=== PATIENT | female | born 1960 | race Caucasian/White ===

== ENCOUNTER 2019-07-30 10:17 | Day surgery (SDC) | payer MEDICAID ==
[~2019-07-30] VITALS: Ht 149.9 cm; Wt 61.2 kg
[2019-07-30] MEDS ORDERED: GLIP10TA10 MT (11:00)
[2019-07-30] MEDS ORDERED: SIMV-46 MT (11:00)
[2019-07-30] MEDS ORDERED: METF-416 MT (11:00)
[2019-07-30] MEDS ORDERED: LISI-649 MT (11:00)
[2019-07-30] MEDS ORDERED: ASPI-1497 MT (11:00)
[2019-07-30] MEDS ORDERED: MIDAZOLAM HCL 2 MG/2 ML VIAL ONE (11:24)
[2019-07-30] MEDS ORDERED: FENTANYL CITRATE/PF 50MCG/ML 2ML VIAL ONE (11:24)
[2019-07-30] MEDS ORDERED: IODIXANOL 320MG/ML 100 ML BOTTLE IV ONE ×2 (11:24→12:21)
[2019-07-30] MEDS ORDERED: LIDOCAINE HCL 1% 20ML VIAL (Pyxis) INJ ONE (11:25)
[2019-07-30 11:36] LABS: HEMATOCRIT 39.4 % (36.0-48.0); HEMOGLOBIN 13.4 g/dL (12.0-16.0); MEAN CORPUSCULAR HEMOGLOBIN 29.8 pg (28.0-32.0); MEAN CORPUSCULAR VOLUME 87.3 fL (81.0-99.0); PLATELET 243 x1000/uL (130-400); RED BLOOD CELL COUNT 4.51 mill/uL (4.2-5.4); RED CELL DISTRIBUTION WIDTH 12.4 % (11.6-14.6)
[2019-07-30 11:41] LABS: CHLORIDE 108 mEq/L (98-107)
[2019-07-30 11:53] LABS: PROTHROMBIN TIME 10.3 sec (9.6-11.0)
[2019-07-30] MEDS ORDERED: SODIUM CHLORIDE 0.45% 1,000 ML IV SCH (13:00)
[2019-07-30] MEDS ORDERED: ONDANSETRON HCL 4MG/2ML INJ IV PRN (13:00)
[2019-07-30] MEDS ORDERED: MORPHINE SULFATE 2 MG/ML CPJ (NOT FOR IM USE) IV PRN (13:00)
[2019-07-30] MEDS ORDERED: ACETAMINOPHEN 325MG TABLET PO PRN (13:00)
== END 2019-07-30 18:25 | disposition home or self-care (01) ==
LOC: CCL 10:17
PROVIDERS: ATTEND Internal Medicine Cardiovascular Disease
DX: I35.0 Nonrheumatic aortic (valve) stenosis (principal); I10 Essential (primary) hypertension; E78.5 Hyperlipidemia, unspecified; E11.9 Type 2 diabetes mellitus without complications; J45.909 Unspecified asthma, uncomplicated; Z79.82 Long term (current) use of aspirin; Z79.899 Other long term (current) drug therapy; Z98.891 History of uterine scar from previous surgery; Z79.84 Long term (current) use of oral hypoglycemic drugs
CPT/HCPCS: 36415; 80048; 85027; 85610; 93005; 93460; 99152; 99153; C1760; C1769; C1887; C1893; J1644; J2250; J3010; J3490; Q9967; G0500

== ENCOUNTER → 2019-12-25 | Outpatient (CLI) | payer MEDICAID ==
[~2019-12-25] MED LIST: ALBU90AE IH; ALBUMIN HUMAN 25GM/100ML (25%) IV ONE; AMINOCAPROIC ACID 250 MG/ML 20ML VIAL ONE; ASPI-1497 MT; BACITRACIN 50,000 UNITS/VIAL ONE; CALCIUM CHLORIDE 1GM/10ML SYR IV ONE; FLOV44 INH; FUROSEMIDE 20MG/2ML VIAL ONE; GLIP10TA10 MT; HEPARIN 1000 UNITS/ML 10ML ONE; IBUP-2437 PO; LISI-649 MT; MAGNESIUM SULFATE 5GM/10ML VIAL IV ONE; METF-416 MT; NORMAL SALINE 0.9% 10 ML SYR ONE; PHENYLEPHRINE HCL 10 MG/ML 1ML (IV VIAL) IV ONE; POTASSIUM CHLORIDE 40MEQ/20ML INJ IV ONE; SIMV-46 MT; SODIUM BICARBONATE 8.4% 1 MEQ/ML 50ML SYR IV ONE; THROMBIN (BOVINE) 5000 UNITS/VIAL TOP ONE
== END | disposition home or self-care (01) ==
LOC: LAB 09:09
PROVIDERS: ATTEND Thoracic Surgery (Cardiothoracic Vascular Surgery)
DX: Z01.818 Encounter for other preprocedural examination (principal); Z11.59 Encounter for screening for other viral diseases
CPT/HCPCS: 36415; 86850; 86900; 86901; C9803; U0003

== ENCOUNTER 2019-12-27 06:27 | Inpatient (IN) | payer MEDICAID ==
[~2019-12-27] VITALS: Ht 149.9 cm; Wt 61.3 kg
[2019-12-27] VITALS (63 sets, daily range): BP systolic 92–272; BP diastolic 12–77
[2019-12-27 06:17] LABS: BASOPHILS % 0.6 % (0.0-2.0); EOSINOPHILS % 2.1 % (0.0-5.0); HEMATOCRIT. 37.5 % (36.0-48.0); HEMOGLOBIN. 12.9 g/dL (12.0-16.0); LYMPHOCYTES % 44.1 % (20.0-50.0); MEAN PLATELET VOLUME 8.3 fl (7.4-10.4); NEUTROPHILS % 46.2 % (40.0-76.0); PLATELET 275 x1000/uL (130-400); RED BLOOD CELL COUNT 4.31 mill/uL (4.2-5.4); RED CELL DISTRIBUTION WIDTH 13.3 % (11.6-14.6)
[2019-12-27 06:24] LABS: CHLORIDE 106 mEq/L (98-107)
[~2019-12-27 06:27] MED LIST changes: -ALBU90AE IH; -ALBUMIN HUMAN 25GM/100ML (25%) IV ONE; +AMINOCAPROIC ACID 10,000 MG in SODIUM CHLORIDE 0.9% 460 ML IV PRN; -AMINOCAPROIC ACID 250 MG/ML 20ML VIAL ONE; -BACITRACIN 50,000 UNITS/VIAL ONE; -CALCIUM CHLORIDE 1GM/10ML SYR IV ONE; +CEFAZOLIN 2,000 MG in DEXT 5% WATER 100 ML IV PRN; +DEL NIDO ELECTROLYTE-S(PH 7.4) 1,000 ML IV PRN; +DOBUTAMINE 250MG PREMIX 250 ML IV PRN; +EPINEPHRINE 4 MG in DEXT 5% WATER 246 ML IV PRN; -FLOV44 INH; -FUROSEMIDE 20MG/2ML VIAL ONE; -HEPARIN 1000 UNITS/ML 10ML ONE; -IBUP-2437 PO; +INSULIN REGULAR (DRIP) 100 UNITS in SODIUM CHLORIDE 0.9% 99 ML IV PRN; -MAGNESIUM SULFATE 5GM/10ML VIAL IV ONE; +NICARDIPINE 40MG/200ML PREMIX 200 ML IV PRN; +NOREPINEPHRINE 4 MG in DEXT 5% WATER 246 ML IV PRN; -NORMAL SALINE 0.9% 10 ML SYR ONE; +PAPAVERINE HCL 180MG in SODIUM CHLORIDE 0.9% 24ML IV SCH; +PHENYLEPHRINE 10 MG in DEXT 5% WATER 249 ML IV PRN; -PHENYLEPHRINE HCL 10 MG/ML 1ML (IV VIAL) IV ONE; -POTASSIUM CHLORIDE 40MEQ/20ML INJ IV ONE; -SODIUM BICARBONATE 8.4% 1 MEQ/ML 50ML SYR IV ONE; -THROMBIN (BOVINE) 5000 UNITS/VIAL TOP ONE
[2019-12-27] MEDS ORDERED: MIDAZOLAM HCL 2 MG/2 ML VIAL ONE (06:59)
[2019-12-27] MEDS ORDERED: FENTANYL CITRATE/PF 50MCG/ML 5ML VIAL ONE (06:59)
[2019-12-27] MEDS ORDERED: SODIUM CHLORIDE 0.9% 1,000 ML IV SCH (07:00)
[2019-12-27] MEDS ORDERED: PROPOFOL 200MG/20ML VIAL IV ONE (07:01)
[2019-12-27] MEDS ORDERED: LABETALOL HCL 5MG/ML VIAL 20ML IV ONE (07:05)
[2019-12-27] MEDS ORDERED: ROCURONIUM BROMIDE 10MG/ML VIAL 5ML IV ONE (07:05)
[2019-12-27] MEDS ORDERED: HEPARIN 10,000 UNITS/ML VIAL ONE (07:08)
[2019-12-27] MEDS ORDERED: ALBU90AE IH (07:30)
[2019-12-27] MEDS ORDERED: IBUP-2437 PO (07:30)
[2019-12-27] MEDS ORDERED: FLOV44 INH (07:30)
[2019-12-27] MEDS ORDERED: ETOMIDATE 2MG/ML 10ML VIAL IV ONE (07:41)
[2019-12-27] MEDS ORDERED: METOPROLOL TARTRATE 5MG/5ML VIAL IV ONE ×2 (08:16→08:20)
[2019-12-27] MEDS ORDERED: AMINOCAPROIC ACID 250 MG/ML 20ML VIAL ONE (10:14)
[2019-12-27] MEDS ORDERED: ONDANSETRON HCL 4MG/2ML INJ ONE (10:14)
[2019-12-27] MEDS ORDERED: METOCLOPRAMIDE HCL 10MG/2ML VIAL ONE (10:14)
[2019-12-27] MEDS ORDERED: THROMBIN (BOVINE) 5000 UNITS/VIAL TOP ONE (10:28)
[2019-12-27] MEDS ORDERED: DOPAMINE 400MG/250ML PREMIX 250 ML IV ONE (10:42)
[2019-12-27] MEDS ORDERED: PROTAMINE SULFATE 10MG/ML VIAL 25ML IV ONE (10:51)
[2019-12-27] MEDS ORDERED: DEXMEDETOMIDINE 400 MCG/100 ML 100 ML IV ONE (11:30)
[2019-12-27] MEDS ORDERED: ALBUMIN HUMAN 12.5G/250ML (5%) IV ONE ×2 (11:40→12:19)
[2019-12-27] MEDS ORDERED: NEOSTIGMINE METHYLSULFATE 1MG/ML 10 ML VIAL ONE (11:46)
[2019-12-27 11:50] LABS: BASOPHILS % 0.3 % (0.0-2.0); EOSINOPHILS % 0.4 % (0.0-5.0); HEMATOCRIT. 31.9 % (36.0-48.0); LYMPHOCYTES % 17.3 % (20.0-50.0); MEAN CORPUSCULAR HEMOGLOBIN 29.7 pg (28.0-32.0); MEAN CORPUSCULAR VOLUME 86.5 fL (81.0-99.0); MEAN PLATELET VOLUME 8.6 fl (7.4-10.4); MONOCYTES % 1.3 % (2.0-8.0); NEUTROPHILS % 80.7 % (40.0-76.0); PLATELET 159 x1000/uL (130-400); RED BLOOD CELL COUNT 3.69 mill/uL (4.2-5.4)
[2019-12-27] MEDS ORDERED: CEFAZOLIN SODIUM 1000MG/VIAL ONE (11:56)
[2019-12-27 11:57] LABS: CHLORIDE 105 mEq/L (98-107)
[2019-12-27 12:03] LABS: PHOSPHORUS 1.9 mg/dL (2.5-4.9)
[2019-12-27 12:04] LABS: INR 1.1; PARTIAL THROMBOPLASTIN TIME 28.3 sec (23.4-31.0); PROTHROMBIN TIME 11.9 sec (9.6-11.0)
[2019-12-27] MEDS ORDERED: SODIUM CHLORIDE 0.9% 500 ML IV PRN (12:10)
[2019-12-27] MEDS ORDERED: DOPAMINE 400MG/250ML PREMIX 250 ML IV PRN (12:10)
[2019-12-27] MEDS ORDERED: ALBUMIN HUMAN 12.5G/250ML (5%) IV PRN (12:15)
[2019-12-27] MEDS: MAGNESIUM HYDROXIDE 400MG/5ML 30ML UDC PO SCH ×3 (12:15→20:06)
[2019-12-27] MEDS ORDERED: MAGNESIUM 1 G PREMIX 100 ML IV PRN (12:15)
[2019-12-27] MEDS ORDERED: ONDANSETRON HCL 4MG/2ML INJ IV PRN (12:15)
[2019-12-27] MEDS ORDERED: MAGNESIUM SULFATE 3 GM in DEXT 5% WATER 100 ML IV PRN (12:15)
[2019-12-27] MEDS ORDERED: ACETAMINOPHEN 325MG TABLET PO PRN (12:15)
[2019-12-27 12:49] LABS: BG BASE EXCESS -2.6 mmol/L (-2.0-2.0); BG CARBOXYHEMOGLOBIN 0.3 % (0.5-1.5); BG FRACTION INSPIRED OXYGEN 40; BG HCO3 ACT 21.8 mmol/L (22.0-26.0); BG METHEMOGLOBIN 0.7 % (0.0-1.5); BG OXYGEN SATURATION 93.9 % (92.0-98.5); BG PCO2 36.3 mmHg (35.0-45.0); BG PH 7.397 (7.350-7.450); BG PO2 74.9 mmHg (75.0-100.0); BG PRESSURE SUPPORT 10; BG SAMPLE SITE A-LINE; BG TOTAL HEMOGLOBIN 10.8 g/dL (12.0-18.0); BG VENT MODE VENT - CPAP
[2019-12-27] MEDS ORDERED: DEXTROSE 50% WATER 50ML SYRINGE IV PRN ×2 (13:00)
[2019-12-27] MEDS ORDERED: INSULIN REGULAR (DRIP) 100 UNITS in SODIUM CHLORIDE 0.9% 100 ML IV SCH (13:00)
[2019-12-27] MEDS ORDERED: KCL 10MEQ/50ML PREMIX 200 ML IV PRN (13:00)
[2019-12-27] MEDS: BLOOD SUGAR DIAGNOSTIC STRIP TEST SCH ×11 (13:10→23:19)
[2019-12-27] MEDS: DEXT 5%/0.45% NACL 1000ML 1,000 ML IV SCH (13:14)
[2019-12-27 14:37] LABS: BG BASE EXCESS -0.8 mmol/L (-2.0-2.0); BG CARBOXYHEMOGLOBIN 0.3 % (0.5-1.5); BG DEOXYHEMOGLOBIN 3.2 % (0.0-5.0); BG FRACTION INSPIRED OXYGEN 40; BG HCO3 ACT 22.9 mmol/L (22.0-26.0); BG METHEMOGLOBIN 0.4 % (0.0-1.5); BG OXYGEN SATURATION 96.8 % (92.0-98.5); BG OXYHEMOGLOBIN 96.1 % (94.0-97.0); BG PCO2 34.5 mmHg (35.0-45.0); BG PO2 95.2 mmHg (75.0-100.0); BG PRESSURE SUPPORT 10; BG SAMPLE SITE A-LINE; BG TOTAL HEMOGLOBIN 11.4 g/dL (12.0-18.0); BG VENT MODE VENT - CPAP
[2019-12-27] MEDS ORDERED: PNEUMOCOCCAL 23-VAL P-SAC VAC 0.5 ML IM ONE (16:00)
[2019-12-27] MEDS: ACETAMINOPHEN WITH CODEINE 300/30MG TABLET PO PRN (16:33)
[2019-12-27] MEDS: DOCUSATE SODIUM 100MG CAPSULE PO SCH (16:39)
[2019-12-27] MEDS: IPRATROPIUM/ALBUTEROL 0.5-3(2.5)MG/3ML NEB HHN SCH ×2 (16:47→20:24)
[2019-12-27 18:32] LABS: BASOPHILS % 0.2 % (0.0-2.0); EOSINOPHILS % 0.1 % (0.0-5.0); HEMATOCRIT. 30.1 % (36.0-48.0); HEMOGLOBIN. 10.5 g/dL (12.0-16.0); LYMPHOCYTES % 7.6 % (20.0-50.0); MEAN CORPUSCULAR HEMOGLOBIN 30.5 pg (28.0-32.0); MEAN PLATELET VOLUME 8.5 fl (7.4-10.4); MONOCYTES % 6.5 % (2.0-8.0); NEUTROPHILS % 85.6 % (40.0-76.0); PLATELET 161 x1000/uL (130-400); RED BLOOD CELL COUNT 3.46 mill/uL (4.2-5.4); RED CELL DISTRIBUTION WIDTH 13.1 % (11.6-14.6)
[2019-12-27 18:37] LABS: CHLORIDE 115 mEq/L (98-107)
[2019-12-27] MEDS: KCL 10MEQ/50ML PREMIX 100 ML IV PRN (18:52)
[2019-12-27] MEDS: MAGNESIUM 2 G PREMIX 50 ML IV PRN (18:53)
[2019-12-27] MEDS: HYDROCODONE/ACETAMINOPHEN 5/325MG TABLET PO PRN (19:25)
[2019-12-27] MEDS: CEFAZOLIN 1000MG PREMIX 50 ML IV SCH (20:07)
[2019-12-27] MEDS: INSULIN REGULAR (DRIP) 100 UNITS in SODIUM CHLORIDE 0.9% 99 ML IV SCH (23:39)
[2019-12-28] VITALS (104 sets, daily range): BP systolic 84–187; BP diastolic 21–78
[2019-12-28] MEDS ORDERED: EPOETIN ALFA 4000UNITS/ML VIAL SUBCUT NR
[2019-12-28] MEDS: BLOOD SUGAR DIAGNOSTIC STRIP TEST SCH ×23 (00:01→23:38)
[2019-12-28] MEDS: MAGNESIUM HYDROXIDE 400MG/5ML 30ML UDC PO SCH ×4 (00:03→11:56)
[2019-12-28] MEDS: IPRATROPIUM/ALBUTEROL 0.5-3(2.5)MG/3ML NEB HHN SCH ×5 (00:16→16:54)
[2019-12-28 00:27] LABS: BASOPHILS % 0.2 % (0.0-2.0); HEMATOCRIT. 31.2 % (36.0-48.0); HEMOGLOBIN. 10.7 g/dL (12.0-16.0); MEAN CORPUSCULAR VOLUME 87.2 fL (81.0-99.0); MEAN PLATELET VOLUME 9.1 fl (7.4-10.4); MONOCYTES % 6.6 % (2.0-8.0); NEUTROPHILS % 84.2 % (40.0-76.0); PLATELET 169 x1000/uL (130-400); RED BLOOD CELL COUNT 3.58 mill/uL (4.2-5.4); RED CELL DISTRIBUTION WIDTH 13.4 % (11.6-14.6)
[2019-12-28 00:32] LABS: CHLORIDE 112 mEq/L (98-107)
[2019-12-28] MEDS: KCL 10MEQ/50ML PREMIX 150 ML IV PRN ×2 (00:42→06:23)
[2019-12-28] MEDS: HYDROCODONE/ACETAMINOPHEN 5/325MG TABLET PO PRN ×2 (00:48→21:08)
[2019-12-28] MEDS: MORPHINE SULFATE 2 MG/ML CPJ (NOT FOR IM USE) IV PRN ×2 (01:35→04:43)
[2019-12-28] MEDS: CEFAZOLIN 1000MG PREMIX 50 ML IV SCH ×2 (04:00→11:00)
[2019-12-28 05:46] LABS: BASOPHILS % 0.2 % (0.0-2.0); HEMATOCRIT. 31.1 % (36.0-48.0); HEMOGLOBIN. 10.5 g/dL (12.0-16.0); LYMPHOCYTES % 9.3 % (20.0-50.0); MEAN CORPUSCULAR HEMOGLOBIN 29.7 pg (28.0-32.0); MEAN CORPUSCULAR VOLUME 87.8 fL (81.0-99.0); MEAN PLATELET VOLUME 8.8 fl (7.4-10.4); MONOCYTES % 7.2 % (2.0-8.0); NEUTROPHILS % 83.3 % (40.0-76.0); PLATELET 162 x1000/uL (130-400); RED BLOOD CELL COUNT 3.55 mill/uL (4.2-5.4); RED CELL DISTRIBUTION WIDTH 13.6 % (11.6-14.6)
[2019-12-28 05:48] LABS: CHLORIDE 109 mEq/L (98-107)
[2019-12-28 05:59] LABS: PHOSPHORUS 2.8 mg/dL (2.5-4.9)
[2019-12-28] MEDS: MAGNESIUM 2 G PREMIX 50 ML IV PRN (06:33)
[2019-12-28] MEDS: KETOROLAC 15MG/ML VIAL IV SCH ×2 (07:34→13:44)
[2019-12-28] MEDS ORDERED: FUROSEMIDE 40MG/4ML VIAL IVP SCH (08:00)
[2019-12-28] MEDS: FAMOTIDINE 20MG/2ML VIAL IV SCH (08:03)
[2019-12-28] MEDS: DOCUSATE SODIUM 100MG CAPSULE PO SCH ×2 (08:03→16:30)
[2019-12-28] MEDS: DEXT 5%/0.45% NACL 1000ML 1,000 ML IV SCH (08:03)
[2019-12-28 12:27] LABS: CHLORIDE 107 mEq/L (98-107)
[2019-12-28] MEDS: KCL 10MEQ/50ML PREMIX 100 ML IV PRN ×2 (12:32→20:55)
[2019-12-28] MEDS ORDERED: FUROSEMIDE 20MG/2ML VIAL IVP NR (14:00)
[2019-12-28] MEDS: INSULIN REGULAR (DRIP) 100 UNITS in SODIUM CHLORIDE 0.9% 99 ML IV SCH (16:08)
[2019-12-28] MEDS: ASPIRIN 81MG TABLET PO SCH (16:30)
[2019-12-28] MEDS: LISINOPRIL 10MG TABLET PO SCH (16:31)
[2019-12-28 20:17] LABS: CHLORIDE 106 mEq/L (98-107)
[2019-12-28] MEDS: ATORVASTATIN CALCIUM 10MG TABLET PO SCH (20:39)
[2019-12-29] VITALS (48 sets, daily range): BP systolic 92–131; BP diastolic 32–104
[2019-12-29] MEDS: BLOOD SUGAR DIAGNOSTIC STRIP TEST SCH ×24 (00:38→23:00)
[2019-12-29] MEDS: HYDROCODONE/ACETAMINOPHEN 5/325MG TABLET PO PRN ×3 (04:08→22:23)
[2019-12-29] MEDS: DEXT 5%/0.45% NACL 1000ML 1,000 ML IV SCH (04:33)
[2019-12-29] MEDS: INSULIN REGULAR (DRIP) 100 UNITS in SODIUM CHLORIDE 0.9% 99 ML IV SCH ×2 (05:02→16:00)
[2019-12-29 05:26] LABS: BASOPHILS % 0.3 % (0.0-2.0); EOSINOPHILS % 0.5 % (0.0-5.0); HEMATOCRIT. 28.1 % (36.0-48.0); HEMOGLOBIN. 9.4 g/dL (12.0-16.0); LYMPHOCYTES % 14.5 % (20.0-50.0); MEAN CORPUSCULAR HEMOGLOBIN 29.6 pg (28.0-32.0); MEAN CORPUSCULAR VOLUME 88.2 fL (81.0-99.0); MEAN PLATELET VOLUME 9.1 fl (7.4-10.4); MONOCYTES % 6.7 % (2.0-8.0); PLATELET 122 x1000/uL (130-400); RED BLOOD CELL COUNT 3.19 mill/uL (4.2-5.4); RED CELL DISTRIBUTION WIDTH 13.9 % (11.6-14.6)
[2019-12-29 05:34] LABS: CHLORIDE 108 mEq/L (98-107)
[2019-12-29 05:46] LABS: PHOSPHORUS 2.2 mg/dL (2.5-4.9)
[2019-12-29] MEDS: KCL 10MEQ/50ML PREMIX 100 ML IV PRN (05:47)
[2019-12-29] MEDS: MORPHINE SULFATE 2 MG/ML CPJ (NOT FOR IM USE) IV PRN (06:16)
[2019-12-29] MEDS ORDERED: KETOROLAC 15MG/ML VIAL IV SCH (08:00)
[2019-12-29] MEDS: FAMOTIDINE 20MG/2ML VIAL IV SCH (08:11)
[2019-12-29] MEDS: ASPIRIN 81MG TABLET PO SCH (08:11)
[2019-12-29] MEDS: MAGNESIUM 2 G PREMIX 50 ML IV PRN (08:11)
[2019-12-29] MEDS: LISINOPRIL 10MG TABLET PO SCH (08:12)
[2019-12-29] MEDS: DOCUSATE SODIUM 100MG CAPSULE PO SCH ×2 (08:12→16:00)
[2019-12-29] MEDS: IPRATROPIUM/ALBUTEROL 0.5-3(2.5)MG/3ML NEB HHN SCH ×3 (08:22→16:40)
[2019-12-29] MEDS: ATORVASTATIN CALCIUM 10MG TABLET PO SCH (21:56)
[2019-12-30] VITALS (35 sets, daily range): BP systolic 94–131; BP diastolic 40–93
[2019-12-30] MEDS: DEXT 5%/0.45% NACL 1000ML 1,000 ML IV SCH (00:30)
[2019-12-30] MEDS: BLOOD SUGAR DIAGNOSTIC STRIP TEST SCH ×16 (01:31→21:41)
[2019-12-30] MEDS: HYDROCODONE/ACETAMINOPHEN 5/325MG TABLET PO PRN ×2 (06:43→21:51)
[2019-12-30 06:50] LABS: BASOPHILS % 0.3 % (0.0-2.0); EOSINOPHILS % 1.3 % (0.0-5.0); HEMATOCRIT. 27.1 % (36.0-48.0); HEMOGLOBIN. 9.3 g/dL (12.0-16.0); LYMPHOCYTES % 21.7 % (20.0-50.0); MEAN CORPUSCULAR HEMOGLOBIN 30.6 pg (28.0-32.0); MEAN CORPUSCULAR VOLUME 88.8 fL (81.0-99.0); MEAN PLATELET VOLUME 9.2 fl (7.4-10.4); MONOCYTES % 6.9 % (2.0-8.0); NEUTROPHILS % 69.8 % (40.0-76.0); PLATELET 127 x1000/uL (130-400); RED BLOOD CELL COUNT 3.05 mill/uL (4.2-5.4); RED CELL DISTRIBUTION WIDTH 13.8 % (11.6-14.6)
[2019-12-30 07:20] LABS: CHLORIDE 113 mEq/L (98-107)
[2019-12-30 07:26] LABS: PHOSPHORUS 3.3 mg/dL (2.5-4.9)
[2019-12-30] MEDS: ASPIRIN 81MG TABLET PO SCH (08:36)
[2019-12-30] MEDS: LISINOPRIL 10MG TABLET PO SCH (08:36)
[2019-12-30] MEDS: FAMOTIDINE 20MG/2ML VIAL IV SCH (08:38)
[2019-12-30] MEDS: INSULIN REGULAR (DRIP) 100 UNITS in SODIUM CHLORIDE 0.9% 99 ML IV SCH (08:39)
[2019-12-30] MEDS: DOCUSATE SODIUM 100MG CAPSULE PO SCH (08:41)
[2019-12-30] MEDS: IPRATROPIUM/ALBUTEROL 0.5-3(2.5)MG/3ML NEB HHN SCH ×5 (09:11→20:43)
[2019-12-30] MEDS: KCL 10MEQ/50ML PREMIX 100 ML IV PRN (09:26)
[2019-12-30] MEDS: ACETAMINOPHEN WITH CODEINE 300/30MG TABLET PO PRN (13:28)
[2019-12-30] MEDS ORDERED: DEXTROSE 50% WATER 50ML SYRINGE IV PRN ×2 (15:15)
[2019-12-30] MEDS ORDERED: OXYCODONE HCL/ACETAMINOPHEN 5/325MG TABLET PO PRN (15:30)
[2019-12-30] MEDS ORDERED: BLOOD SUGAR DIAGNOSTIC STRIP TEST SCH (17:50)
[2019-12-30] MEDS: INSULIN LISPRO 100 UNITS/ML SUBCUT SCH ×2 (18:24→21:40)
[2019-12-30] MEDS ORDERED: METOPROLOL TARTRATE 25MG TABLET PO SCH (21:00)
[2019-12-30] MEDS ORDERED: ATORVASTATIN CALCIUM 10MG TABLET PO SCH (21:00)
[2019-12-30] MEDS: METOPROLOL TARTRATE 25MG TABLET PO SCH (21:00)
[2019-12-31] VITALS (9 sets, daily range): BP systolic 94–127; BP diastolic 58–77
[2019-12-31] MEDS: IPRATROPIUM/ALBUTEROL 0.5-3(2.5)MG/3ML NEB HHN SCH ×4 (00:48→13:01)
[2019-12-31] MEDS: BLOOD SUGAR DIAGNOSTIC STRIP TEST SCH ×2 (06:33→12:02)
[2019-12-31] MEDS: INSULIN LISPRO 100 UNITS/ML SUBCUT SCH ×2 (07:56→12:08)
[2019-12-31] MEDS: HYDROCODONE/ACETAMINOPHEN 5/325MG TABLET PO PRN (08:39)
[2019-12-31] MEDS: FAMOTIDINE 20MG/2ML VIAL IV SCH (08:39)
[2019-12-31] MEDS: METOPROLOL TARTRATE 25MG TABLET PO SCH (08:44)
[2019-12-31] MEDS ORDERED: LISINOPRIL 10MG TABLET PO SCH (09:00)
[2019-12-31] MEDS ORDERED: DOCUSATE SODIUM 250MG CAPSULE PO SCH (09:00)
[2019-12-31] MEDS ORDERED: ASPIRIN 81MG TABLET PO SCH (09:00)
[2019-12-31 11:23] LABS: BASOPHILS % 0.6 % (0.0-2.0); EOSINOPHILS % 1.7 % (0.0-5.0); HEMATOCRIT. 28.8 % (36.0-48.0); LYMPHOCYTES % 24.6 % (20.0-50.0); MEAN CORPUSCULAR HEMOGLOBIN 30.6 pg (28.0-32.0); MEAN PLATELET VOLUME 8.7 fl (7.4-10.4); MONOCYTES % 9.4 % (2.0-8.0); NEUTROPHILS % 63.7 % (40.0-76.0); PLATELET 199 x1000/uL (130-400); RED BLOOD CELL COUNT 3.28 mill/uL (4.2-5.4); RED CELL DISTRIBUTION WIDTH 13.5 % (11.6-14.6)
[2019-12-31 11:44] LABS: CHLORIDE 109 mEq/L (98-107)
== END 2019-12-31 17:25 | disposition home health service (06) | DRG 163 ==
LOC: OR 06:27 → CVICU 06:28 → 3WST 12-30 18:12
PROVIDERS: ADMIT Thoracic Surgery (Cardiothoracic Vascular Surgery); ATTEND Thoracic Surgery (Cardiothoracic Vascular Surgery)
PROC: 02RF08Z Replacement of Aortic Valve with Zooplastic Tissue, Open Approach (ICD-10-PCS; principal; 2019-12-27)
PROC: 0W9B30Z Drainage of Left Pleural Cavity with Drainage Device, Percutaneous Approach (ICD-10-PCS; 2019-12-27)
PROC: 5A1221Z Performance of Cardiac Output, Continuous (ICD-10-PCS; 2019-12-27)
PROC: B24BZZ4 Ultrasonography of Heart with Aorta, Transesophageal (ICD-10-PCS; 2019-12-27)
PROC: 0W9930Z Drainage of Right Pleural Cavity with Drainage Device, Percutaneous Approach (ICD-10-PCS; 2019-12-27)
DX: I35.0 Nonrheumatic aortic (valve) stenosis (principal); A41.9 Sepsis, unspecified organism; E78.5 Hyperlipidemia, unspecified; I10 Essential (primary) hypertension; R26.9 Unspecified abnormalities of gait and mobility; E87.8 Other disorders of electrolyte and fluid balance, not elsewhere classified; E11.42 Type 2 diabetes mellitus with diabetic polyneuropathy; R74.0 Nonspecific elevation of levels of transaminase and lactic acid dehydrogenase [LDH]; Z79.4 Long term (current) use of insulin; Z79.899 Other long term (current) drug therapy; Z83.3 Family history of diabetes mellitus; Z82.49 Family history of ischemic heart disease and other diseases of the circulatory system
CPT/HCPCS: 36415; 36600; 71045; 80048; 80053; 82375; 82805; 82962; 83036; 83735; 84100; 85025; 85384; 86850; 86900; 86920; 87070; 87075; 88305; 88311; 90732; 93005; 94002; 94640; 97110; 97116; 97162; 97166; 97530; 97535; J0690; J0885; J1265; J1644; J1815; J1885; J1940; J2250; J2270; J2370; J2405; J2440; J2704; J2710; J2720; J2765; J3010; J3475; J3480; J3490; J7050; J7060; P9041; P9047; Q9957